=== PATIENT | male | born 1970 | race Caucasian/White ===

== ENCOUNTER 2020-08-09 10:58 | Emergency (ER) | payer BC, SELFPAY ==
--- NOTE | 2020-08-09 11:13 | ED.GENADULT ---
HPI - General Adult General Chief complaint: Fall Stated complaint: fell out of jacuzzi last night Time Seen by Provider: 08/09/20 11:05 Source: patient Mode of arrival: Ambulatory Limitations: no limitations History of Present Illness HPI narrative: Patient is a 50-year-old male who is here for evaluation of lower back pain and neck pain. He states that last evening he was in his Jacuzzi tub when he slipped and fell. He did not lose consciousness. He stated that he did have some back pain last evening but this morning thinks stim to be getting worse. He has had back pain in the past and has had surgery. Has been ambulatory. Related Data Previous Rx's Medication Instructions Recorded tramadol 50 mg PO Q4H PRN #7 tab 08/09/20 Allergies Allergy/AdvReac Type Severity Reaction Status Date / Time Penicillins Allergy Verified 08/09/20 11:31 Review of Systems Constitutional Constitutional: Denies fever(s) and Denies headache(s) Eyes Eyes: Denies change in vision ENT Ears, Nose, Mouth, and Throat: Denies headache(s) Cardiovascular Cardiovascular: Denies chest pain and Denies dyspnea Respiratory Respiratory: Denies dyspnea Gastrointestinal Gastrointestinal: Denies abdominal pain, Denies nausea and Denies vomiting Genitourinary Genitourinary: Denies dysuria Genitourinary: Denies dysuria Musculoskeletal Musculoskeletal: Reports back pain and Denies radiating pain into limb Integumentary/Breasts Skin/Breast: Denies lesions and Denies rash Neurologic Neurologic: Denies behavioral changes and Denies headache(s) Psychiatric Psychiatric: Denies behavioral changes Hematologic/Lymphatic On Anticoagulants: No Allergic/Immunologic Allergic/Immunologic: Denies urticaria Patient History Medical History Lower back pain Social History Smoking Status: Current every day smoker Exam Initial Vital Signs Initial Vital Signs: Vital Signs Temperature 98 F 08/09/20 11:16 Pulse Rate 91 H 08/09/20 11:16 Respiratory Rate 18 08/09/20 11:16 Blood Pressure 169/96 H 08/09/20 11:16 Pulse Oximetry 98 08/09/20 11:16 Const General: cooperative and comfortable Limitations: mental status not altered [facility] Head: normal to inspection and normocephalic Ears: hearing grossly normal bilaterally Nose: external nose normal Chest Chest: No tenderness Resp Effort & Inspection: normal respiratory effort Cardio Rate: regular rate GI Inspection: non-distended Back/Spine/Pelvis Cervical Spine: cervical spinal tenderness Thoracic/Lumbar Spine: lumbar spinal tenderness Skin Lesions: no lesions Rashes: no rashes Neuro General: patient alert, patient awake and patient oriented x3 Cognition: normal cognition Speech: speech normal Gait: normal gait Extrem General: normal to inspection and capillary refill normal Psych Appearance: grossly normal and well kempt Scores GCS Marcus coma scale eye opening: Spontaneous Napoleon coma scale verbal response: Orientated Napoleon coma scale motor response: Obey commands Marcus coma scale total score: 15 Nexus Score for C-Spine Focal Neurologic deficit present: No Midline spinal tenderness present: Yes Altered level of conciousness present: No Intoxication present: No Distracting Injury Present: No Nexus Criteria for C-spine: 1 Course Orders Ordered: ED Orders 08/09/20 11:16 CT cervical spine wo con Stat XR lumbar spine 2-3V Stat 08/09/20 12:30 COVID19 -Nasal swab/Pre-Proc Stat Discontinued Medications Hydromorphone HCl (Hydromorphone 1 Mg Inj) 1 mg IM NOW ONE Stop: 08/09/20 11:17 Last Admin: 08/09/20 11:34 Dose: 1 mg Documented by: MARCELO Hydromorphone HCl (Hydromorphone 1 Mg Inj) 1 mg IM NOW ONE Stop: 08/09/20 12:12 Last Admin: 08/09/20 12:31 Dose: 1 mg Documented by: MARCELO Vital Signs Vital signs: Vital Signs - 8 hr 08/09/20 11:16 08/09/20 13:12 Temperature 98 F Pulse Rate 91 H 83 Respiratory Rate 18 Blood Pressure 169/96 H 149/69 H Pulse Oximetry 98 98 Medical Decision Making Lab Data Lab results reviewed: Yes I reviewed the patient's lab results. Labs: Lab Results 08/09/20 Range/Units 12:30 SARS-CoV-2 (PCR) Negative (Negative) Imaging Data Extremity x-ray #1: Radiologist's Impression: [address] [id number] ReportSigned Patient: Randall Jackson Jr#: [id number]: 1970Acct:[id number]/Sex: 50 / MDate of Service: 08/09/20Loc: EDAccession Number: [id number] Procedure: XR lumbar spine 2-3V Ordering Provider: Derrick Potter D.O. PROCEDURE: XR LUMBAR SPINE 2-3V INDICATIONS: prior surgery with midline pain after fall TECHNIQUE: 2 views of the lumbar spine were acquired. COMPARISON: [facility], CT, CT CERVICAL SPINE WO CON, 08/09/2020, 11:23. FINDINGS: Bones: 5 [id number] vertebrae are present. There is normal bony alignment. No vertebral body compression fractures. No suspicious bony lesions. Moderate disc space narrowing is seen at L1-L2. Endplate irregularity and sclerosis can be seen at this level. Mild disc space narrowing is seen at the L5-S1 level. The disc heights otherwise appear well-preserved. Lower lumbar spine facet arthropathy is seen. Age-appropriate lower thoracic spine degenerative changes are seen. Soft tissues: Overlying bowel gas pattern is normal. No suspicious soft tissue calcifications. Cholecystectomy clips are seen. IMPRESSION: No displaced fractures are seen on these plain films. If there is focal tenderness, or other clinical concern for a fracture not seen on these images in this patient with a given history of trauma, please consider a dedicated CT or a short-term followup plain film series (in 1-2 weeks) for further evaluation. Degenerative changes are seen, which are worst at L1-L2 and L5-S1. Dictated by: Kem Edge M.D. on 08/09/2020 at 10:34 Approved by: Kem Edge M.D. on 08/09/2020 at 10:36 CT - cervical spine: Radiologist's Impression: [address] [id number] Scan ReportSigned Patient: Randall Jackson Jr#: [id number]: 1970Acct:[id number]/Sex: 50 / MDate of Service: 08/09/20Loc: EDAccession Number: [id number] Procedure: CT cervical spine wo con Ordering Provider: Derrick Potter D.O. PROCEDURE: CT CERVICAL SPINE WO CON INDICATIONS: midline pain after fall last night TECHNIQUE: Noncontrast 3 mm thick sections acquired from the skull base to the T4 level. Sagittal and coronal reformats were then constructed. For radiation dose reduction, the following was used: automated exposure control, adjustment of mA and/or kV according to patient size. COMPARISON: [facility], CR, XR LUMBAR SPINE 2-3V, 08/09/2020, 11:18. FINDINGS: Image quality: This examination is somewhat limited by quantum mottle artifact. Bones: No acute appearing fractures or dislocations. There is a remote appearing anterior wedge deformity seen involving the T4 level. Visualized superior ribs are intact. Degenerative changes are seen, including bridging anterior osteophytes at the C2-C3 level. Soft tissues: Prevertebral soft tissues are normal in thickness. No paravertebral hematomas. No apical pneumothoraces. IMPRESSION: No acute fractures are seen. Remote appearing T4 anterior wedge deformity. Dictated by: Kem Edge M.D. on 08/09/2020 at 10:37 Approved by: Kem Edge M.D. on 08/09/2020 at 10:38 MDM Narrative Medical decision making narrative: Patient's x-ray showed no signs of any acute fractures. His cervical collar was removed after the resulting CT scan. Received pain medication here in the emergency department any stated that it did nothing to help any of his symptoms. He asked that he received a COVID test because he has had a slight cough and he needs to return back to work wanted to make sure he did not have COVID. His COVID was negative. No further workup needed the emergency department. No other injuries reported from the patient. Initially told the patient that he could take Tylenol/ibuprofen he became very upset about this. Stated that he wanted stronger medication. I then wrote him a script for Ultram and he stated that he did not want this medication. He stated that he wanted ?narcotic ?pain medication. I informed him that I would not prescribe this for him. He stated that the Ultram was not strong enough for him. I reminded him that the shots of pain medication that he received were ?narcotic ?pain medication and that did not work for him that an oral ?narcotic ?pain medication would not be helpful either. Re assured him that there were no fractures on the x-ray. Informed him that his symptoms would get better with time. He became very upset with this. Discharge Plan Departure Patient Disposition: Home Clinical Impression: Neck pain, Low back pain Instructions: Low Back Pain Activity Restrictions/Additional Instructions: Your x-rays and CT scans showed no signs of fracture. Your COVID was also negative. Recommend that you take Tylenol/ibuprofen for any discomfort. You can also do other conservative measures such as heat/ice/massaged. Return to the emergency department for any new or worsening symptoms Prescriptions: New tramadol 50 mg tablet 50 mg PO Q4H PRN (Reason: pain) Qty: 7 RF: 0
[2020-08-09 11:16] VITALS: BP 169/96; PULSE 91; RESP 18; TEMP 36.6; O2SAT 98; BMI 40.1
--- NOTE | 2020-08-09 11:16 | DI.RAD.S_ITS ---
PROCEDURE: XR LUMBAR SPINE 2-3V INDICATIONS: prior surgery with midline pain after fall TECHNIQUE: 2 views of the lumbar spine were acquired. COMPARISON: [facility], CT, CT CERVICAL SPINE WO CON, 08/09/2020, 11:23. FINDINGS: Bones: 5 [id number] vertebrae are present. There is normal bony alignment. No vertebral body compression fractures. No suspicious bony lesions. Moderate disc space narrowing is seen at L1-L2. Endplate irregularity and sclerosis can be seen at this level. Mild disc space narrowing is seen at the L5-S1 level. The disc heights otherwise appear well-preserved. Lower lumbar spine facet arthropathy is seen. Age-appropriate lower thoracic spine degenerative changes are seen. Soft tissues: Overlying bowel gas pattern is normal. No suspicious soft tissue calcifications. Cholecystectomy clips are seen. IMPRESSION: No displaced fractures are seen on these plain films. If there is focal tenderness, or other clinical concern for a fracture not seen on these images in this patient with a given history of trauma, please consider a dedicated CT or a short-term followup plain film series (in 1-2 weeks) for further evaluation. Degenerative changes are seen, which are worst at L1-L2 and L5-S1. Dictated by: Kem Edge M.D. on 08/09/2020 at 10:34 Approved by: Kem Edge M.D. on 08/09/2020 at 10:36
--- NOTE | 2020-08-09 11:16 | DI.CT.S_ITS ---
PROCEDURE: CT CERVICAL SPINE WO CON INDICATIONS: midline pain after fall last night TECHNIQUE: Noncontrast 3 mm thick sections acquired from the skull base to the T4 level. Sagittal and coronal reformats were then constructed. For radiation dose reduction, the following was used: automated exposure control, adjustment of mA and/or kV according to patient size. COMPARISON: [facility], CR, XR LUMBAR SPINE 2-3V, 08/09/2020, 11:18. FINDINGS: Image quality: This examination is somewhat limited by quantum mottle artifact. Bones: No acute appearing fractures or dislocations. There is a remote appearing anterior wedge deformity seen involving the T4 level. Visualized superior ribs are intact. Degenerative changes are seen, including bridging anterior osteophytes at the C2-C3 level. Soft tissues: Prevertebral soft tissues are normal in thickness. No paravertebral hematomas. No apical pneumothoraces. IMPRESSION: No acute fractures are seen. Remote appearing T4 anterior wedge deformity. Dictated by: Kem Edge M.D. on 08/09/2020 at 10:37 Approved by: Kem Edge M.D. on 08/09/2020 at 10:38
[2020-08-09] MEDS: HYDROMORPHONE 1 MG INJ IM ×2 (11:34→12:31)
[2020-08-09 12:57] LABS: COVID19 -Nasal RAPID Negative (Negative)
[2020-08-09 13:12] VITALS: BP 149/69; PULSE 83; O2SAT 98
--- NOTE | 2020-08-09 13:22 | PC.NURSE ---
Patient very upset upon discharge and unsatisfied that a narcotic was not prescribed for his pain. Dr Potter and RN at bedside to discuss pain management. Patient took discharge paperwork and prescription for Tramadol but states he will go to another hosptial to be seen by someone who gives a fuck
== END 2020-08-09 13:25 | disposition home or self-care (01) ==
PROVIDERS: Emergency Provider Emergency Medicine
DX: M54.2 Cervicalgia (principal); M54.5 Low back pain; W19.XXXA Unspecified fall, initial encounter; Z20.822 Contact with and (suspected) exposure to COVID-19
CPT/HCPCS: 72100; 72125; 87635; 96372; 99283; 99284; C9803; J1170